=== PATIENT | male | born 1975 | race African-American/Black ===

== ENCOUNTER 2016-10-13 11:55 | Inpatient (IN) | payer SELFPAY ==
--- NOTE | ~2016-10-13 | HP ---
History And Physical [address] [place]. [address] NAME: MELLISSA FARR : 71 STATUS : ADM Moon PAT#: [id number] AGE: 41 ADM/REG DATE : 10/13/16 MR#: [id number] REPORT SERV DATE: 10/13/16 DICTATED BY: YINA PRASAD DATE: 10/13/16 REPORT STATUS : Draft TRANSCRIBED BY: MODL DATE: 10/13/16 DATE OF ADMISSION: 10/13/2016 CHIEF COMPLAINT: Shortness of breath. HISTORY OF PRESENT ILLNESS: The patient is a very pleasant 41-year-old male. He was previously healthy. He does appear to suffer from obesity. He states he works at a [employer]. He was in his usual state of health until about 2 to 3 weeks ago when he started developing lower extremity edema. The edema progressed and seemed to involve his abdomen. He notes that soon after he started feeling short of breath at nighttime. He would wake up suddenly short of breath and had an inability to lie flat without feeling a smothering sensation. Last evening, the symptoms were quite pronounced and he could not sleep, he could not lie flat, and his swelling had advanced, so he felt necessary to come to the ER today. He denies any history of chest pain and he has not had a fever. He has had a slight cough. He is complaining of some left-sided abdominal pain near his hernia repair. He does not have any cardiac history and really no other medical history, but he has not seen a doctor in many years. PAST MEDICAL HISTORY: 1. Obesity. 2. Hernia repair in 1995. SOCIAL HISTORY: He drives a truck. He drinks very rarely. He smokes one pack per day. He is . He has no children. FAMILY HISTORY: His father had hypertension and diabetes. His mom is healthy and he has a brother with hypertension. SURGICAL HISTORY: Hernia repair in 1995. HOME MEDICATIONS: None. REVIEW OF SYSTEMS: Full 10-point review of systems obtained. Pertinent positives are mentioned in the HPI. PHYSICAL EXAMINATION: VITAL SIGNS: Current blood pressure is 151/112, temperature 98.6, pulse 111, respiratory rate 18, and sats are 95% on room air. GENERAL: Morbidly obese male. HEENT: Normocephalic, atraumatic. Throat is clear. NECK: Supple. HEART: Regular rate and rhythm without murmurs, rubs, or gallops. LUNGS: He is diminished at the bases. ABDOMEN: Distended and edematous but there is no redness or erythema. There is no evidence of a hernia that I can find on exam. EXTREMITIES: Warm and dry. He has 2+ tense edema to the thighs. His pulses are non palpable, but they are easily found with a Doppler and this History And Physical [address] [address] NAME: MELLISSA FARR : 71 STATUS : ADM Moon PAT#: [id number] AGE: 41 ADM/REG DATE : 10/13/16 MR#: [id number] REPORT SERV DATE: 10/13/16 DICTATED BY: YINA PRASAD DATE: 10/13/16 REPORT STATUS : Draft TRANSCRIBED BY: HEMALATHA DATE: 10/13/16 is due to the fact that his feet are so swollen. SKIN: He has no open lesions or rashes. NEUROLOGIC: He is alert. He has symmetrical strength and tone in all four extremities. PSYCHIATRIC: His mood and affect are appropriate. LABORATORY AND X-RAY: Chest x-ray shows marked cardiomegaly, pulmonary vascular congestion. CBC is essentially normal other than H and H of 12.8, hemoglobin of 40, platelets are 289, and coags are normal. Chemistry panel is essentially normal. His glucose is 112. Troponin is 0.03. LFTs are pending. BNP is 841. EKG shows left atrial enlargement and LVH, some lateral T-wave changes, and sinus tachycardia. ASSESSMENT/PLAN: 1. Probable new onset heart failure as evidenced by cardiomegaly, pulmonary vascular congestion, elevated cardiac BNP, anasarca, PND, and orthopnea. Etiology unclear at this point. We will do two more sets of enzymes. We will place him on a tele bed. I am going to diurese with Bumex 1 mg IV q.8 hours. We will start an ZANDER inhibitor and in the next 24 hours, we will likely add a low-dose beta-nay. We would like to achieve optimal blood pressure control and diuresis, then would consider ischemic evaluation. We will also check LFTs and his albumin just to rule out other causes of possible volume overload to include cirrhosis. His kidney function looks stable. Once the above aforementioned steps are taken, we will reassess. We will obtain an echocardiogram and repeat his EKG in the morning. 2. Obesity, needs weight loss. 3. Hypertension, uncontrolled. Adding ZANDER inhibitor, then likely beta-nay in the next 24 hours. Diuresis underway. 4. Deep venous thrombosis prophylaxis with subcutaneous Lovenox. 5. Disposition pending above aforementioned plan and workup. DEX/HEMALATHA Yina Prasad M.D. / [id number]
--- NOTE | ~2016-10-13 | PUL ---
[address] [place]. [address] NAME: MELLISSA FARR : 71 STATUS : ADM IN PAT#: [id number] AGE: 41 ADM/REG DATE : 10/13/16 MR#: [id number] REPORT SERV DATE: 10/19/16 DICTATED BY: NURIA CUMMINGS DATE: 10/19/16 REPORT STATUS : Draft TRANSCRIBED BY: MODL DATE: 10/19/16 PULMONARY FUNCTION TEST OVERNIGHT OXIMETRY REPORT START DATE OF TESTIN10/18/2016. END DATE OF TESTIN10/19/2016. COMMENTS: Testing was conducted with the patient breathing room air. RESULTS: Total valid sampling time 5 hours 50 minutes and 35 seconds. Total time with an oxygen saturation less than 88%, 24 minutes and 24 seconds. Oxygen desaturation event index 17.8. IMPRESSION: There was significant desaturation during this study conducted with the patient breathing room air. Additionally, the oxygen desaturation event index was elevated, suggestive of possible obstructive sleep apnea. Recommend supplemental oxygen at a minimum flow rate of 2 L/minute with sleep. Also recommend formal sleep study to evaluate for possible obstructive sleep apnea if clinically indicated. PS/MODL Nuria Cummings M.D. / [id number] CC: Alexandru Rocha Jr, MD
--- NOTE | ~2016-10-13 | DS ---
Discharge Summary [address] [place]. [address] NAME: MELLISSA FARR : 71 STATUS : DIS IN PAT#: [id number] AGE: 41 ADM/REG DATE : 10/13/16 MR#: [id number] REPORT SERV DATE: 10/22/16 DICTATED BY: BILLY ROYAL DATE: 10/21/16 REPORT STATUS : Draft TRANSCRIBED BY: HEMALATHA DATE: 10/21/16 ADMISSION DATE: 10/13/2016 DISCHARGE DATE: 10/21/2016 DISCHARGE: The patient left against medical advice on 10/21/2016. ADMISSION DIAGNOSES: 1. Acute heart failure with reduced ejection fraction of 15% to 20%. 2. Nonischemic cardiomyopathy. 3. Dilated cardiomyopathy. 4. Essential hypertension. 5. Tobacco abuse. 6. Morbid obesity. 7. Moderate pulmonary hypertension. 8. Nocturnal hypoxia concerning for obstructive sleep apnea. CONSULTATION: 1. Cardiology. 2. Perri Morris. INVASIVE PROCEDURE: 1. Left heart catheterization done on 10/17/2016 that showed [id number]-ah-tlpccz pulmonary hypertension with severely elevated left ventricular end-diastolic filling pressure. There was no concern for coronary artery disease. Left ventriculogram was not performed. Findings were consistent with nonischemic cardiomyopathy, performed by Dr. Brandt. 2. Echocardiogram on 10/14/2016 which showed severe left ventricular dysfunction with ejection fraction of 70%. There was anteroseptal and posterolateral akinesis with markedly dilated left ventricle. There was right ventricular function moderately compromised with right ventricular filling pressure elevated. There was no significant valvular dysfunction. IMAGING: Venous Doppler, no evidence of DVT, incidental left lymph node of questionable significance, and incidental Dillon cyst, left side. HISTORY OF PRESENT ILLNESS: For detailed HPI, please make reference to Dr. Daly Washington' dictation on 10/13/2016. In brief, this is a 41-year-old male with medical history of morbid obesity, who was a known fire truck driver. He presented to the hospital with worsening lower extremity swelling of three weeks' duration, progressive abdominal distention, and shortness of breath both on exertion and at rest. Vitals in the ER: Blood pressure was 151/112, temperature was 98.6, pulse rate was 111, respiratory rate was 18, and saturating 95% on room air. Physical exam was noted for distended and edematous abdominal wall. Also noted to have bilateral pitting edema all the way to the thigh, +2. Discharge Summary [address] [address] NAME: MELLISSA FARR : 71 STATUS : DIS IN PAT#: [id number] AGE: 41 ADM/REG DATE : 10/13/16 MR#: [id number] REPORT SERV DATE: 10/22/16 DICTATED BY: BILLY ROYAL DATE: 10/21/16 REPORT STATUS : Draft TRANSCRIBED BY: MODJohnny DATE: 10/21/16 Chest x-ray showed cardiomegaly with pulmonary vascular congestion. WBC: Hemoglobin was 12.8, hematocrit was 40, and platelets were 286. Troponin was 0.03. BNP 841. EKG shows left atrial enlargement with LVH and sinus tachycardia. An assessment of new-onset heart failure was made in the ER. The patient was admitted to the Hospitalist Service. HOSPITAL COURSE: Acute decompensated heart failure with reduced EF with a new diagnosis during this admission. The patient was started on IV diuretics with Bumex. The patient continued to have significant urinary output. An echocardiogram was done, report as noted above. Cardiology was consulted. Recommended a left heart catheterization. The patient underwent left heart catheterization that showed no coronary artery disease, but was noted to have moderate to severe pulmonary hypertension with elevated left ventricular diastolic filling pressures. Cardiology recommended ongoing IV diuretics as patient continued to have significant volume overload. Pulmonary was also consulted given the diagnosis of moderate to severe pulmonary hypertension. A nocturnal pulse oximetry was also recommended that confirmed the presence of nocturnal hypoxia which was keeping with possible obstructive sleep apnea. The patient was continued on Coreg, aspirin, ZANDER inhibitor, and Aldactone and tolerated well without any complications. The patient was still undergoing IV diuresis when it was noted that the patient got frustrated and got angry, probably due to some conflict with his . The patient was noted to have been very agitated on the morning where he signed AMA. The patient was being counseled for the attending physician to come to talk to him, however, patient did not wait for further instruction from the attending physician (Dr. Royal). Prior to me coming to the floor to see the patient, it was noted that the patient had left the medical floor AMA very early in the morning. The patient was noted to be uninsured. The patient was being advised to undergo further evaluation for possible disability with insurance, but the patient remained adamant that he wants to continue working despite knowing the diagnosis of significant reduced EF and the risk for sudden arrhythmias and sudden . sales service manager and social media developer had had multiple discussions as regard to how patient will procure his heart failure medication prior to discharge. On the morning of discharge, it was noted that the patient received prescription for heart failure medication and reports that he will be able to afford the medication at that time and left the hospital without any further instruction. Unfortunately, this 41-year-old man has significant left ventricular ejection fraction, and despite understanding the need for further medical treatment, left the hospital against medical advice. DICTATED BY: MD NICOLAS Paulino/HEMALATHA Billy Royal MD / [id number] Discharge Summary [address] [address] NAME: MELLISSA FARR : 71 STATUS : DIS IN PAT#: [id number] AGE: 41 ADM/REG DATE : 10/13/16 MR#: [id number] REPORT SERV DATE: 10/22/16 DICTATED BY: BILLY ROYAL DATE: 10/21/16 REPORT STATUS : Draft TRANSCRIBED BY: HEMALATHA DATE: 10/21/16 CC: Alexandru Rocha Jr, MD
--- NOTE | ~2016-10-13 | IDS ---
Interim Discharge Summary [facility] [address] [place]. [address] NAME: MELLISSA FARR : 71 STATUS : ADM IN PAT#: [id number] AGE: 41 ADM/REG DATE : 10/13/16 MR#: [id number] REPORT SERV DATE: 10/20/16 DICTATED BY: JR. ROCHA WILLIAM JOHN DATE: 10/20/16 REPORT STATUS : Draft TRANSCRIBED BY: MODJohnny DATE: 10/20/16 ADMISSION DATE: 10/13/2016 DISCHARGE DATE: I cared for this patient from 10/18/2016 through 10/20/2016. WORKING DIAGNOSES: 1. Acute systolic heart failure with ejection fraction of 15% to 20%. 2. Nonischemic cardiomyopathy. 3. Dilated cardiomyopathy. 4. Essential hypertension. 5. Tobacco abuse. 6. Morbid obesity with body mass index of 41.3. 7. Moderate pulmonary hypertension. 8. Possible obstructive sleep apnea with nocturnal desaturation. OPERATIONS, PROCEDURES, AND TREATMENTS: 1. PA and lateral chest x-ray done on 10/13/2016, which showed cardiomegaly with pulmonary vascular congestion. Otherwise, no acute abnormality. 2. Venous Doppler ultrasound of bilateral lower extremities done on 10/14/2016, which showed no evidence of deep vein thrombosis. There was an incidental left lymph nodes of uncertain significance and an incidental Dillon's cyst on the left leg. 3. Portable chest x-ray done on 10/19/2016, which showed no acute disease. 4. Nocturnal desaturation study done on the evening of 10/18/2016, which showed significant desaturation with recommendation for a minimum flow rate of 2 L/minute with sleep. 5. Echocardiogram done on 10/14/2016, which showed severe left ventricular dysfunction with an ejection fraction of 17%. There was anteroseptal and posterolateral akinesis with marked dilation of left ventricle. There was right ventricular function moderately compromised with right ventricular filling pressure is elevated. There was no significant valvular dysfunction. No previous study to compare to. 6. Cardiac catheterization done on 10/17/2016, which showed jbzccoer-uu-javotw pulmonary hypertension with severely elevated left ventricular end-diastolic filling pressure. There was no significant coronary artery disease. Left ventriculogram was not performed. Findings were consistent with nonischemic cardiomyopathy, performed by Dr. Brandt. ACTIVE CONSULTANTS: Dr. Larsen of Cardiology. CURRENT MEDICATIONS: Please see today's progress note. HOSPITAL COURSE: Briefly, the patient is a 41-year-old male, who presented to the emergency room on 10/13/2016, with complaint of shortness of breath. He was in his usual state of health until two to three weeks prior when he developed lower extremity edema that progressed, and seemed to have involved his abdomen. The symptoms worsened and he experienced orthopnea and came to the emergency room for further help. On initial exam, temperature is 98.6, blood pressure 151/112, heart rate 111, respiratory rate of 18, Interim Discharge Summary [address] [place]. [address] NAME: MELLISSA FARR : 71 STATUS : ADM IN [facility]#: [id number] AGE: 41 ADM/REG DATE : 10/13/16 MR#: [id number] REPORT SERV DATE: 10/20/16 DICTATED BY: JR. ROCHA WILLIAM JOHN DATE: 10/20/16 REPORT STATUS : Draft TRANSCRIBED BY: HEMALATHA DATE: 10/20/16 saturation 95% on room air. Exam was remarkable for distended and edematous abdomen and 2+ tense edema of the legs up to and including the thighs. Chest x-ray as detailed above. Initial cardiac enzymes were negative. EKG showed some lateral T-wave changes. The patient was admitted to the hospital. He was seen in consultation by Cardiology. Echocardiogram was performed, showed severe left ventricular dysfunction, right ventricular dysfunction. The patient was placed on diuresis with IV Bumex and had variable diuresis. There was some question of the validity of his recorded output. In addition, the patient was placed on beta blockade, aspirin, ZANDER inhibitor, and Aldactone. He underwent a cardiac catheterization that failed to show significant occlusive coronary artery disease. The patient continues to be diuresed. Regarding essential hypertension, blood pressure is well controlled on the current medication. As he is to tobacco abuse, he has been counseled to stop. As related to his nocturnal desaturation and possible obstructive sleep apnea. He did have a nocturnal desaturation study with significant nocturnal desaturation demonstrated. Recommendation was for a minimum of 2 L/minute of oxygen at sleep. The patient will need an outpatient polysomnogram. Socially, the patient has minimal financial resources. Case management/social services analyst are aware and are currently working to secure pay source for medication as well as outpatient followup. The patient will be discharged home when felt to be euvolemic by Cardiology. For today's exam and laboratory, please see daily progress note. WJF/MODL Alexandru Rocha Jr, MD / [id number] CC: Alexandru Rocha Jr, MD
--- NOTE | ~2016-10-13 | CN ---
Consultation Report [facility] [address] [place]. [address] NAME: MELLISSA FELIX : 71 STATUS : ADM Moon PAT#: [id number] AGE: 41 ADM/REG DATE : 10/13/16 MR#: [id number] REPORT SERV DATE: 10/14/16 DICTATED BY: CORY MADERA DATE: 10/14/16 REPORT STATUS : Draft TRANSCRIBED BY: HEMALATHA DATE: 10/14/16 CARDIOLOGY CONSULTATION NOTE DATE OF CONSULTATION: 10/14/2016 CHIEF COMPLAINT: Shortness of breath and leg swelling. REASON FOR CONSULTATION: Congestive heart failure. SOURCE: The patient and his chart and his . HISTORY OF PRESENT ILLNESS: Mr. Felix is a very pleasant, 41-year-old black man with no significant past cardiac history. He was in his usual state of health until about three weeks ago when he began to notice leg swelling and shortness of breath which has progressed. He now has orthopnea, requiring sitting up in a chair at night to sleep. He has not had any chest pain. He has had palpitations described as fast, irregular beating at times. He has not had any syncope. His weight is unchanged. No fever or chills. No bleeding. He has noticed some left-sided sharp pain in the left upper quadrant and inside his left ribs which is sharp and occurs when he lies on that side, changes in position seemed to help. REVIEW OF SYSTEMS: All other systems are negative. ALLERGIES: NO KNOWN DRUG ALLERGIES. MEDICATIONS: [place]-hug-qcoxfjw antihistamine, bqpl-eeg-lkfaoay aspirin, and occasional Aleve. CARDIAC RISK FACTORS: Hypertension, tobacco. FAMILY HISTORY: Denies diabetes or cholesterol. SOCIAL HISTORY: The patient lives in [place]. He is . He has three children, alive and well. He is a solo truck driver. FAMILY HISTORY: Father had myocardial infarction at age 50. PAST MEDICAL HISTORY: Significant for no prior heart or stroke problems, status post hernia surgeries times several, he thinks that may be the cause of his left sided pain. PHYSICAL EXAMINATION: GENERAL: Well-developed, well-nourished, middle-aged black man, in no acute distress. VITAL SIGNS: Blood pressure 132/85, pulse 95, temperature 98.6. Weight is 130.71 kilos. HEENT: Sclerae anicteric. Lips without cyanosis. Carotids 2+ and symmetrical. NECK: No JVD. No thyromegaly. Consultation Report [id number] [facility] [address] NAME: MELLISSA FELIX : 71 STATUS : ADM Moon PAT#: [id number] AGE: 41 ADM/REG DATE : 10/13/16 MR#: [id number] REPORT SERV DATE: 10/14/16 DICTATED BY: CORY MADERA DATE: 10/14/16 REPORT STATUS : Draft TRANSCRIBED BY: HEMALATHA DATE: 10/14/16 LUNGS: Clear to auscultation. No use of accessory muscles. HEART: Regular rate and rhythm. Tachycardic without murmur, gallop, or rub. ABDOMEN: Positive bowel sounds. Soft, nontender. Obese. EXTREMITIES: Pulses 2+ and symmetrical 4+ edema. No cyanosis or clubbing. BACK: No CVA tenderness. MUSCULOSKELETAL: Good tone. NEURO: Alert and oriented x3. He had EKG which reveals normal sinus rhythm, possible left atrial enlargement, left ventricular hypertrophy, lateral T-wave changes. LABORATORY EXAMINATION: Troponin 0.02, no evolution. Glycated hemoglobin 5.4. Sodium 138, potassium 3.9, chloride 101, CO2 of 32, glucose 127, BUN 18, creatinine 1.03. Troponin 0.03. Total bilirubin 0.7. Alkaline phosphatase 66, ALT 31, AST 12. White count 6.0, hemoglobin 12.8, hematocrit 40.3, platelets 289,000. INR 1.2. PTT of 30.4. The BNP level of 840. The venous Doppler, no evidence of DVT, incidental left lymph nodes, question significance incidental Dillon's cyst left side. The echocardiogram reveals dilated left ventricle with severely depressed left ventricular systolic function, LVEF of 17%, anteroseptal and posterolateral akinesis, marked dilatation of the left ventricular cavity, right-sided ventricular function moderately compromised, right-sided filling pressures were elevated, no significant valvular dysfunction, no prior study. IMPRESSION: 1. New onset acute systolic congestive heart failure. 2. Severely depressed left ventricular systolic function with LVEF of 17% by echocardiography. 3. Cardiac risk factors including hypertension, tobacco, and family history. 4. Obesity. RECOMMENDATIONS: 1. Diuresis with IV Bumex. 2. Carvedilol and lisinopril. 3. Consider spironolactone later. 4. File for at least short-term disability. 5. CHF nurse to see. 6. Stocking is when his legs are down. 7. Cardiac catheterization, possible angioplasty when he is able to lie flat. 8. Further recommendations following the above. TIFFANI/HEMALATHA Cory Madera M.D. Consultation Report [address] [address] [id number] [facility] [address] NAME: MELLISSA FELIX : 71 STATUS : ADM Moon PAT#: [id number] AGE: 41 ADM/REG DATE : 10/13/16 MR#: [id number] REPORT SERV DATE: 10/14/16 DICTATED BY: CORY MADERA DATE: 10/14/16 REPORT STATUS : Draft TRANSCRIBED BY: HEMALATHA DATE: 10/14/16 / [id number] CC: Juhi Grimes M.D.
[2016-10-13 11:17] LABS: BASOPHILS 0.3 %; BASOPHILS ABSOLUTE 0.02 10/3/uL (0.0-0.16); EOSINOPHILS 1.8 %; EOSINOPHILS ABSOLUTE 0.11 10/3/uL (0.0-0.53); ER CBC TAT 0 Hrs 05 Mins; HEMATOCRIT 40.3 % (40.0-51.0); HEMOGLOBIN 12.8 g/dL (13.6-17.8); IMMATURE GRANULOCYTES 0.3 %; IMMATURE GRANULOCYTES ABSOLUTE 0.02 10/3/uL (0.0-0.11); LYMPHOCYTES 24.2 %; LYMPHOCYTES ABSOLUTE 1.46 10/3/uL (0.67-4.30); MEAN CORPUS HGB CONC 31.8 g/dL (32.0-36.0); MEAN CORPUSCULAR HEMOGLOB 28.3 pg (26.0-34.0); MEAN PLATELET VOLUME 8.4 fL (9.2-13.0); MONOCYTES 9.4 %; MONOCYTES ABSOLUTE 0.57 10/3/uL (0.21-1.20); NEUTROPHILS ABSOLUTE 3.86 10/3/uL (2.02-8.40); PLATELET COUNT 289 10/3/uL (150-400); RBC DISTRIBUTION WIDTH 13.6 % (12.0-16.0); RED CELL COUNT 4.53 10/6/uL (4.7-6.1)
[2016-10-13 11:19] LABS: MANUAL DIFF NO %
[2016-10-13 11:30] LABS: INTERNATIONAL NORMAL RATI 1.2 UNITS (-); PARTIAL THROMBO TIME 30.4 SEC (22.5-37.2); PROTIME (NOT ORD) 14.6 SEC (12.0-14.5)
[2016-10-13 11:33] LABS: BUN (BLOOD UREA NITROGEN) 20 MG/DL (6-23); CALCIUM, SERUM 8.4 MG/DL (8.5-10.4); CHEST PAIN PROFILE TAT 0 Hrs 21 Mins; CHLORIDE, SERUM 104 MMOL/L (96-112); CO2 (CARBON DIOXIDE) 32 MMOL/L (24-34); CREATININE 1.09 MG/DL (0.70-1.30); GFR AFRICAN AMERICAN 96 ML/MIN (>=60); GFR NON AFRICAN AMERICAN 83 ML/MIN (>=60); GLUCOSE, SERUM 112 MG/DL (60-99); POTASSIUM, SERUM 3.5 MMOL/L (3.5-5.3); SODIUM, SERUM 140 MMOL/L (135-148); TROPONIN I 0.03 NG/ML (<0.05)
[2016-10-13] MEDS ORDERED: ALEVE220 MG PO (12:58)
[2016-10-13] MEDS ORDERED: ASABAYER PO (12:59)
[2016-10-13] MEDS ORDERED: RACEPINEPHRINE 2.25% INH (13:00)
[2016-10-14 05:00] LABS: ALBUMIN 3.4 G/DL (3.5-5.0); ALKALINE PHOSPHATASE 66 U/L (45-117); BUN (BLOOD UREA NITROGEN) 18 MG/DL (6-23); CALCIUM, SERUM 8.4 MG/DL (8.5-10.4); CHLORIDE, SERUM 101 MMOL/L (96-112); CO2 (CARBON DIOXIDE) 32 MMOL/L (24-34); CREATININE 1.03 MG/DL (0.70-1.30); DIRECT BILIRUBIN 0.2 MG/DL (0.0-0.4); GFR AFRICAN AMERICAN 103 ML/MIN (>=60); GFR NON AFRICAN AMERICAN 89 ML/MIN (>=60); GLUCOSE, SERUM 127 MG/DL (60-99); INDIRECT BILIRUBIN(NOT ORDER) 0.5 MG/DL (0.1-0.9); POTASSIUM, SERUM 3.9 MMOL/L (3.5-5.3); SGOT(AST) 12 U/L (5-40); SGPT(ALT) 31 U/L (5-65); SODIUM, SERUM 138 MMOL/L (135-148); TOTAL BILIRUBIN 0.7 MG/DL (0-1.2); TROPONIN I 0.03 NG/ML (<0.05)
[2016-10-15 05:27] LABS: BASOPHILS 0.7 %; BASOPHILS ABSOLUTE 0.04 10/3/uL (0.0-0.16); EOSINOPHILS 2.9 %; EOSINOPHILS ABSOLUTE 0.17 10/3/uL (0.0-0.53); HEMATOCRIT 42.7 % (40.0-51.0); HEMOGLOBIN 13.7 g/dL (13.6-17.8); IMMATURE GRANULOCYTES 0.3 %; IMMATURE GRANULOCYTES ABSOLUTE 0.02 10/3/uL (0.0-0.11); LYMPHOCYTES ABSOLUTE 1.65 10/3/uL (0.67-4.30); MEAN CORPUS HGB CONC 32.1 g/dL (32.0-36.0); MEAN CORPUSCULAR VOLUME 90.3 fL (80-100); MEAN PLATELET VOLUME 8.8 fL (9.2-13.0); MONOCYTES 11.4 %; MONOCYTES ABSOLUTE 0.67 10/3/uL (0.21-1.20); NEUTROPHILS 56.7 %; NEUTROPHILS ABSOLUTE 3.35 10/3/uL (2.02-8.40); PLATELET COUNT 320 10/3/uL (150-400); RBC DISTRIBUTION WIDTH 13.5 % (12.0-16.0); RED CELL COUNT 4.73 10/6/uL (4.7-6.1); WHITE BLOOD CELLS 5.9 10/3/uL (4.5-10.5)
[2016-10-15 05:30] LABS: MANUAL DIFF NO %
[2016-10-15 05:34] LABS: BUN (BLOOD UREA NITROGEN) 23 MG/DL (6-23); CALCIUM, SERUM 9.1 MG/DL (8.5-10.4); CHLORIDE, SERUM 103 MMOL/L (96-112); CO2 (CARBON DIOXIDE) 34 MMOL/L (24-34); CREATININE 0.99 MG/DL (0.70-1.30); GFR AFRICAN AMERICAN 108 ML/MIN (>=60); GFR NON AFRICAN AMERICAN 93 ML/MIN (>=60); GLUCOSE, SERUM 107 MG/DL (60-99); POTASSIUM, SERUM 4.3 MMOL/L (3.5-5.3); SODIUM, SERUM 142 MMOL/L (135-148)
[2016-10-16 07:00] LABS: BUN (BLOOD UREA NITROGEN) 21 MG/DL (6-23); CALCIUM, SERUM 8.5 MG/DL (8.5-10.4); CHLORIDE, SERUM 101 MMOL/L (96-112); CO2 (CARBON DIOXIDE) 35 MMOL/L (24-34); CREATININE 1.21 MG/DL (0.70-1.30); GFR AFRICAN AMERICAN 84 ML/MIN (>=60); GFR NON AFRICAN AMERICAN 73 ML/MIN (>=60); GLUCOSE, SERUM 103 MG/DL (60-99); POTASSIUM, SERUM 3.7 MMOL/L (3.5-5.3); SODIUM, SERUM 139 MMOL/L (135-148)
[2016-10-17 07:59] LABS: BASOPHILS 0.5 %; BASOPHILS ABSOLUTE 0.03 10/3/uL (0.0-0.16); EOSINOPHILS 2.7 %; EOSINOPHILS ABSOLUTE 0.15 10/3/uL (0.0-0.53); HEMATOCRIT 42.3 % (40.0-51.0); HEMOGLOBIN 13.2 g/dL (13.6-17.8); IMMATURE GRANULOCYTES 0.4 %; IMMATURE GRANULOCYTES ABSOLUTE 0.02 10/3/uL (0.0-0.11); LYMPHOCYTES 38.7 %; LYMPHOCYTES ABSOLUTE 2.18 10/3/uL (0.67-4.30); MEAN CORPUS HGB CONC 31.2 g/dL (32.0-36.0); MEAN CORPUSCULAR HEMOGLOB 27.7 pg (26.0-34.0); MEAN CORPUSCULAR VOLUME 88.9 fL (80-100); MEAN PLATELET VOLUME 8.6 fL (9.2-13.0); MONOCYTES 11.9 %; MONOCYTES ABSOLUTE 0.67 10/3/uL (0.21-1.20); NEUTROPHILS 45.8 %; NEUTROPHILS ABSOLUTE 2.58 10/3/uL (2.02-8.40); PLATELET COUNT 335 10/3/uL (150-400); RBC DISTRIBUTION WIDTH 13.6 % (12.0-16.0); RED CELL COUNT 4.76 10/6/uL (4.7-6.1); WHITE BLOOD CELLS 5.6 10/3/uL (4.5-10.5)
[2016-10-17 08:00] LABS: MANUAL DIFF NO %
[2016-10-17 08:02] LABS: PARTIAL THROMBO TIME 33.1 SEC (22.5-37.2); PROTIME (NOT ORD) 13.4 SEC (12.0-14.5)
[2016-10-17 08:11] LABS: BUN (BLOOD UREA NITROGEN) 24 MG/DL (6-23); CALCIUM, SERUM 8.5 MG/DL (8.5-10.4); CHLORIDE, SERUM 101 MMOL/L (96-112); CHOL/HDL RATIO(NOT ORDER) 3.8 (0-5); CHOLESTEROL 165 MG/DL (< 200); CO2 (CARBON DIOXIDE) 33 MMOL/L (24-34); CREATININE 1.09 MG/DL (0.70-1.30); GFR AFRICAN AMERICAN 96 ML/MIN (>=60); GFR NON AFRICAN AMERICAN 83 ML/MIN (>=60); GLUCOSE, SERUM 102 MG/DL (60-99); HDL CHOLESTEROL 43 MG/DL (> 39); LDL CHOLESTEROL 104 MG/DL (< 130); NON-HDL CHOLESTEROL 122 MG/DL (< 160); POTASSIUM, SERUM 3.9 MMOL/L (3.5-5.3); SODIUM, SERUM 137 MMOL/L (135-148); TRIGLYCERIDE 94 MG/DL (< 150)
[2016-10-19 06:36] LABS: BUN (BLOOD UREA NITROGEN) 26 MG/DL (6-23); CALCIUM, SERUM 8.8 MG/DL (8.5-10.4); CHLORIDE, SERUM 101 MMOL/L (96-112); CO2 (CARBON DIOXIDE) 34 MMOL/L (24-34); CREATININE 1.09 MG/DL (0.70-1.30); GFR AFRICAN AMERICAN 96 ML/MIN (>=60); GFR NON AFRICAN AMERICAN 83 ML/MIN (>=60); GLUCOSE, SERUM 95 MG/DL (60-99); POTASSIUM, SERUM 4.3 MMOL/L (3.5-5.3); SODIUM, SERUM 139 MMOL/L (135-148)
[2016-10-20 06:42] LABS: BUN (BLOOD UREA NITROGEN) 24 MG/DL (6-23); CHLORIDE, SERUM 99 MMOL/L (96-112); CO2 (CARBON DIOXIDE) 33 MMOL/L (24-34); CREATININE 1.21 MG/DL (0.70-1.30); GFR AFRICAN AMERICAN 84 ML/MIN (>=60); GFR NON AFRICAN AMERICAN 73 ML/MIN (>=60); GLUCOSE, SERUM 133 MG/DL (60-99); POTASSIUM, SERUM 4.3 MMOL/L (3.5-5.3); SODIUM, SERUM 139 MMOL/L (135-148)
== END 2016-10-21 08:21 | disposition left against medical advice (07) | DRG 287 ==
LOC: ER 11:55 → CDU1 14:08 → CDU2 15:20 → 1SO 10-15 16:10
PROVIDERS: Emergency Medicine; Hospitalist; Internal Medicine; Internal Medicine Cardiovascular Disease
PROC: 4A023N7 Measurement of Cardiac Sampling and Pressure, Left Heart, Percutaneous Approach (ICD-10-PCS; principal; 2016-10-17)
PROC: B2111ZZ Fluoroscopy of Multiple Coronary Arteries using Low Osmolar Contrast (ICD-10-PCS; 2016-10-17)
DX: I11.0 Hypertensive heart disease with heart failure (principal); N17.9 Acute kidney failure, unspecified; Z68.41 Body mass index [BMI] 40.0-44.9, adult; I47.1 Supraventricular tachycardia; I42.8 Other cardiomyopathies; I27.2 Other secondary pulmonary hypertension; E66.01 Morbid (severe) obesity due to excess calories; I50.21 Acute systolic (congestive) heart failure; G47.33 Obstructive sleep apnea (adult) (pediatric); F17.210 Nicotine dependence, cigarettes, uncomplicated; Z79.82 Long term (current) use of aspirin
CPT/HCPCS: 71010; 71020; 80048; 80061; 80076; 82803; 83036; 83735; 83880; 84443; 84484; 85025; 85610; 85730; 93005; 93460; 93970; 94762; 99152; 99285; A9270-GY; C1769; C1894; C8929; J2250; J3010; Q9957; Q9967